=== PATIENT | female | born 1985 | race Two or more races ===

== ENCOUNTER 2017-03-24 01:58 | Emergency (ER) | payer BC, OTHER ==
[~2017-03-24] VITALS: Ht 167.6 cm; Wt 88.5 kg
[2017-03-24] MEDS ORDERED: HYDROCODON-ACE1 EA15 ORAL (02:25)
[2017-03-24] MEDS ORDERED: AMOXICILLIN500 MG ORAL (02:25)
--- NOTE | 2017-03-24 02:26 | Emergency Room Report ---
History of Present Illness General Chief Complaint: Flu Like Symptoms Source: Patient Present Illness HPI Is a 31-year-old female with no past medical history. She presents with chief complaint of sore throat and fever. Onset for last 3 days. No nausea no vomiting. No cough or congestion. Pain is 10 out of 10. Worse with swallowing. No trauma. No drooling. Allergies: Coded Allergies: No Known Allergies (Unverified , 03/24/17) Patient History Past Medical History: none, see triage record, old chart reviewed Past Surgical History: none Pertinent Family History: none Social History: Denies: smoking Last Menstrual Period: MARCH 03 Now: No Immunizations: other Reviewed Nursing Documentation: PMH: Agreed, PSxH: Agreed Nursing Documentation-PMH Past Medical History: No Stated History Review of Systems Constitutional: Reports: fever Eye: Denies: blurred vision, eye pain ENT: Reports: throat pain Respiratory: Denies: cough, shortness of breath Cardiovascular: Denies: chest pain, palpitations Gastrointestinal: Denies: abdominal pain, diarrhea, nausea, vomiting Musculoskeletal: Denies: back pain, joint pain Skin: Denies: rash Neurological: Denies: headache, numbness Endocrine: Denies: increased thirst, increased urine Hematologic/Lymphatic: Denies: easy bruising All Other Systems: negative except mentioned in HPI Physical Exam Vital Signs Date Time Temp Pulse Resp B/P Pulse Ox O2 Delivery O2 Flow Rate FiO2 03/24/17 02:03 99.1 103 18 125/78 97 Room Air vitals unremarkable Sp02 EP Interpretation: reviewed, normal General Appearance: no apparent distress, alert, other - Ill appearing Head: normocephalic, atraumatic Eyes: bilateral eye EOMI, bilateral eye PERRL ENT: hearing grossly normal, tonsillar swelling, pharyngeal erythema, tonsillar exudate, other - No trismus Neck: full range of motion, supple, no meningismus Respiratory: chest non-tender, lungs clear, normal breath sounds Cardiovascular #1: regular rate, rhythm, no murmur Gastrointestinal: normal bowel sounds, non tender, no mass, no organomegaly, no bruit, non-distended Musculoskeletal: back normal, gait/station normal, normal range of motion Psychiatric: mood/affect normal Skin: warm/dry Medical Decision Making Diagnostic Impression: Primary Impression: Acute tonsillitis Qualified Codes: J03.00 - Acute streptococcal tonsillitis, unspecified ER Course Patient presents with exudative tonsillitis. Most likely strep. No evidence of peritonsillar abscess, retropharyngeal abscess or Bob angina. We'll discharge home Last Vital Signs Date Time Temp Pulse Resp B/P Pulse Ox O2 Delivery O2 Flow Rate FiO2 03/24/17 02:09 103 18 Room Air 03/24/17 02:03 99.1 125/78 97 Status: improved Disposition: HOME, SELF-CARE Condition: Stable Scripts Hydrocodone/Acetaminophen 5-325* (HYDROCODONE/ACETAMINOPHEN 5-325*) 1 Each Tablet 1 TAB ORAL Q6H Y for For Pain, #20 TAB 0 Refills Prov: TIMOTHY CHARLES M.D. 03/24/17 Amoxicillin* (AMOXIL*) 500 Mg Capsule 500 MG ORAL THREE TIMES A DAY, #21 CAP Prov: TIMOTHY CHARLES M.D. 03/24/17 Additional Instructions: Followup with your Dr. in 2-5 days. Return if symptom worsen. TIMOTHY CHARLES M.D. Mar 24, 2017 02:26
[2017-03-24] MEDS ORDERED: PredniSONE 20mg tab ORAL ONE (02:30)
[2017-03-24] MEDS ORDERED: Norco 5mg/325mg tab ORAL ONE (02:30)
[2017-03-24 02:37] VITALS: BP 125/78
== END 2017-03-24 02:37 | disposition home or self-care (01) ==
LOC: EMR 02:20
DX: J03.90 Acute tonsillitis, unspecified (principal)
CPT/HCPCS: 99284

== ENCOUNTER 2018-10-05 08:10 | Emergency (ER) | payer BC ==
[~2018-10-05] VITALS: Ht 165.1 cm; Wt 83.9 kg
[~2018-10-05 08:10] MED LIST: AMOXICILLIN500 MG ORAL; HYDROCODON-ACE1 EA15 ORAL
[2018-10-05 08:18] VITALS: BP 122/73
--- NOTE | 2018-10-05 08:18 | NUR ---
ED Nurse Note: PT WALKED IN TO ER TODAY FROM HOME. AOX4. PT C/O BILATERAL FEET PAIN, 9/10 AT [facility]. PT DENIES TRAUMA OR INJURY. FULL ROM OF BILATERAL LOWER EXTREMITIES, 5/5 MUSCLE STRENGTH, CAP REFILL <3 SECONDS, AND SENSATION AND CIRCULATION INTACT. PT DENIES NUMBNESS OR TINGLING.
[2018-10-05] MEDS ORDERED: Ketorolac 60mg Inj IM ONE (09:00)
--- NOTE | 2018-10-05 09:15 | Emergency Room Report ---
History of Present Illness General Chief Complaint: Pain Source: Patient Present Illness HPI The patient states that about a week ago she started having pain in the bottom of both her feet. She does not associate this with any type of trauma or injury. She does not associate this with a long walk or any other change in physical activity. The patient states that the symptoms are worse at night. She states they are becoming more severe. She denies trauma or illness. She denies fever or chills. She denies swelling or skin changes. She has never had similar symptoms in the past. She has no other complaints. Allergies: Coded Allergies: No Known Allergies (Unverified , 03/24/17) Patient History Past Medical History: see triage record, DM Social History: Denies: smoking, alcohol use, drug use Now: No Reviewed Nursing Documentation: PMH: Agreed; PSxH: Agreed Nursing Documentation-PMH Past Medical History: No History, Except For Hx Diabetes: Yes - Type 2 Review of Systems All Other Systems: negative except mentioned in HPI Physical Exam Vital Signs Date Time Temp Pulse Resp B/P (MAP) Pulse Ox O2 Delivery O2 Flow Rate FiO2 10/05/18 08:15 98.1 97 20 120/76 98 Room Air Sp02 EP Interpretation: reviewed, normal General Appearance: no apparent distress, alert, GCS 15, non-toxic Head: normocephalic, atraumatic Eyes: bilateral eye normal inspection, bilateral eye PERRL ENT: hearing grossly normal, normal pharynx, no angioedema, normal voice Neck: full range of motion, supple/symm/no masses Respiratory: no respiratory distress, no retraction, no accessory muscle use, speaking full sentences Rectal: deferred Musculoskeletal: back normal, tender - TTP along bilateral plantar facia distribution Neurologic: alert, oriented x3, responsive, motor strength/tone normal, sensory intact, speech normal Psychiatric: judgement/insight normal, memory normal, mood/affect normal, no suicidal/homicidal ideation Skin: normal color, no rash, warm/dry, well hydrated Medical Decision Making Diagnostic Impression: Primary Impression: Plantar fasciitis, bilateral ER Course This patient has a clinical presentation and physical exam consistent with plantar fasciitis. There are no red flags on physical exam or history that would make me concerned for underlying fracture. Therefore, I do not feel that I need to obtain imaging studies. The patient has pain with range of motion and has tenderness to palpation along the plantar fascia. There is no evidence of compartment syndrome. There is no neurologic deficit. The patient was instructed on supportive home measures to orthopedic shoes, night splints, exercises and anti-inflammatories. No emergency medical condition was identified. The patient was given return precautions and followup instructions. Last Vital Signs Date Time Temp Pulse Resp B/P (MAP) Pulse Ox O2 Delivery O2 Flow Rate FiO2 10/05/18 08:18 98.3 92 18 122/73 98 Room Air Status: improved Disposition: HOME, SELF-CARE Condition: Improved Referrals: NON PHYSICIAN (PCP) Mame Terrazas DO Oct 05, 2018 09:15
[2018-10-05] MEDS ORDERED: IBUPROFEN800 MG ORAL (09:16)
[2018-10-05 09:30] VITALS: BP 124/76
--- NOTE | 2018-10-05 09:30 | NUR ---
ED Nurse Note: PT LAYING PEACEFULLY IN BED IN NAD. AOX4. PRESCRIPTIONS AND DISCHARGE PAPERWORK EXPLAINED TO PT. PT VERBALIZES UNDERSTANDING AND DENIES ANY QUESTIONS AT THIS TIME. PRESCRIPTIONS AND DISCHARGE PAPERWORK GIVEN TO PT AND ID WRISTBAND REMOVED. PT WALKED OUT OF ER WITH STEADY GAIT AND ALL BELONGINGS.
== END 2018-10-05 09:31 | disposition home or self-care (01) ==
LOC: EMR 09:00
DX: M72.2 Plantar fascial fibromatosis (principal); E11.9 Type 2 diabetes mellitus without complications
CPT/HCPCS: 96372; 99283